=== PATIENT | male | born 1970 | race Caucasian/White ===

== ENCOUNTER 2017-07-20 08:17 | Emergency (ER) | payer OTHER ==
[2017-07-20 08:36] VITALS: BP 131/107
== END 2017-07-20 08:57 ==
LOC: ER 08:18
DX: Z02.89 Encounter for other administrative examinations (principal); M54.2 Cervicalgia; M25.512 Pain in left shoulder; M54.9 Dorsalgia, unspecified; G89.29 Other chronic pain
CPT/HCPCS: 99284